=== PATIENT | male | born 1925 | race Caucasian/White ===

== ENCOUNTER 2016-06-02 17:18 | Emergency (ER) | payer MEDICARE, OTHER ==
[~2016-06-02 17:18] MED LIST: Lidocaine 1% 20 ML MDV ONE
[2016-06-02] MEDS ORDERED: cefTRIAXone\\ROCEPHIN 1 GM VIAL ONE (19:00)
--- NOTE | 2016-06-02 19:13 | ERRECORD ---
[facility] HPI COUGH (18:24 LLDO) CHIEF COMPLAINT: Patient presents for evaluation of cough, productive of clear sputum, Patient presents for evaluation of see triage note. finished 10 day course of cefdinir today but has not seen any benefit yet. still having low grade fever, mostly at night. cough still a problem, also mostly at night. HISTORIAN: History provided by patient, History provided by patient's family. LOCATION: Symptoms are generalized. QUALITY: Denies tightness, Symptoms described as wheezing, Pain is dull in nature, described as aching, has home neb and takes his own duoneb qid. TIME COURSE: Gradual onset of symptoms, There has been no change in the patient's symptoms over time, are constant. ASSOCIATED WITH: Associated symptoms reviewed, Associated with fever, Associated with nausea, Associated with upper respiratory infection, Associated with wheezing, Associated with weakness. EXACERBATED BY: Patient's condition exacerbated by deep breaths, Patient's condition exacerbated by exercise, Patient's condition exacerbated by lying flat. RELIEVED BY: Patient's condition relieved by rest, Patient's condition relieved by upright position. ROS CONSTITUTIONAL: Historian reports fatigue, reports fever, reports malaise, reports weakness. (18:28 LLDO) EYES: Negative eye review of systems, Historian denies eye pain, denies eye redness, denies eye discharge. (18:33 LLDO) ENT: Historian reports sore throat. (18:28 LLDO) CARDIOVASCULAR: Negative cardiovascular review of systems, Historian denies chest pain, no radiation, Historian denies diaphoresis, denies paroxysmal nocturnal dyspnea, denies syncope. (18:33 LLDO) RESPIRATORY: Historian reports cough, reports sputum. described as thick, clear, yellow, Historian reports wheezing. (18:28 LLDO) GI: Negative gastrointestinal review of systems, Historian denies abdominal pain, denies constipation, denies diarrhea, denies nausea, denies vomiting. (18:33 LLDO) MUSCULOSKELETAL: Historian reports myalgias. (18:28 LLDO) NEUROLOGIC: Historian denies confusion, denies dizziness, denies dysphasia, denies focal weakness, denies gait changes, reports headache, denies irritability, denies lethargy, denies mental status changes. (18:28 LLDO) HEMO/LYMPHATIC: Normal hematologic/lymphatic system review, Historian denies abnormal blood clotting, denies gum bleeding, denies petechiae. (18:33 LLDO) &a-1R&a+25V*p+0X*w7563V*c202B*c15G*c2P*p-0X&a-25V&a+1R Name: Eliceo Flood : 1925 M89 MedRec: [id number] AcctNum: [id number] Prepared: Bekah Jun 02, 2016 19:58 by Interface Page 1 of 5 pMD [facility] ALLERGIC/IMMUNOLOGIC: Normal allergy/immunologic system review, Historian denies eczema, denies environmental allergies, denies food allergies. (18:33 LLDO) PSYCHIATRIC: Negative psychiatric review of systems, Historian denies alcohol abuse, denies anxiety, denies depression, denies drug abuse, denies hallucinations. (18:33 LLDO) NOTES: All systems reviewed, negative except as described above. (18:28 LLDO) PAST MEDICAL HISTORY MEDICAL HISTORY: Flu vaccine up to date, Tetanus immunization up to date, Pneumococcal vaccine up to date, Past medical history includes cardiac history, arrhythmia, atrial fibrillation, Past medical history includes history of hypertension, which has been treated, Patient is compliant, Notes: ALATNA, Flu vaccine up to date,, Pneumococcal vaccine up to date, Past medical history includes cardiac history, Treated with a pacemaker, Past medical history includes pulmonary disease, chronic obstructive pulmonary disease. (17:47 CJEF) MALE SURGICAL HISTORY: Surgical history of orthopedic surgery, L2 TO S1 LAMINECTOMY, Date of surgery 04-06-15, Surgical history of appendectomy, Surgical history of cholecystectomy, Surgical history of hernia repair, CATARACTS-BILAT, Surgical history of tonsillectomy, Surgical history of appendectomy, Surgical history of hernia repair. (17:47 CJEF) PSYCHIATRIC HISTORY: Notes: DENIES, Notes: DENIES. (17:47 CJEF) SOCIAL HISTORY: Social History includes VERIFIED 04-08-15, Patient has no smoking history, Patient denies alcohol use, Patient denies drug use. (17:47 CJEF) FAMILY HISTORY: Family history is non-contributory to this case. (17:47 CJEF) NOTES: Nursing records reviewed, Agree with nursing records, Medication list reviewed. (18:33 LLDO) KNOWN ALLERGIES ALLERGIES: (Unconfirmed) flunisolide FOOD ALLERGIES: (Unconfirmed) Iodides Iodinated Contrast Media (Unconfirmed) Iodinated Contrast Media - IV Dye Iodine (Unconfirmed) LATEX ALLERGY? (Unconfirmed) MORPHINE (Unconfirmed) morphine (bulk) rosuvastatin calcium (Unconfirmed): Reaction: PT STATES GIVES HIM MENTAL Qjcjpst-Kvz-Wun Reductase Inhibitor (Unconfirmed): Reaction: GIVES HIM MENTAL PROBLEMS &a-1R&a+25V*p+0X*c7952D*c202B*c15G*c2P*p-0X&a-25V&a+1R Name: Eliceo Flood : 1925 M89 MedRec: [id number] AcctNum: [id number] Prepared: Bekah Jun 02, 2016 19:58 by Interface Page 2 of 5 [facility] Wdfuifd-Qgu-Ceo Reductase Inhibitors CURRENT MEDICATIONS aspirin: TABLET, CHEWABLE : Strength - 81 mg : ORAL Patient Dose: mg Oral once a day. (17:43 CJEF) albuterol: AEROSOL (GRAM) : Strength - 90 mcg : INHALATION Patient Dose: amp(s) Nebulize every 4 to 6 hours. (17:43 CJEF) amLODIPine: TABLET : Strength - 5 mg : ORAL Patient Dose: 0.5 mg Oral once a day. (17:43 CJEF) levothyroxine: TABLET : Strength - 100 mcg : ORAL Patient Dose: 100 mcg Oral once a day (in the morning). (17:44 CJEF) Bystolic: TABLET : Strength - 10 mg : ORAL Patient Dose: 10 mg Oral once a day (in the morning). (17:44 CJEF) RABEprazole: TABLET, DELAYED RELEASE (ENTERIC COATED) : Strength - 20 mg : ORAL Patient Dose: 20 mg Oral once a day. (17:44 CJEF) Zetia: TABLET : Strength - 10 mg : ORAL Patient Dose: 10 mg Oral once a day (at bedtime). (17:44 CJEF) losartan: TABLET : Strength - 25 mg : ORAL Patient Dose: 25 mg Oral once a day. (17:45 CJEF) Xalatan: DROPS : Strength - 0.005 % : OPHTHALMIC Patient Dose: 1 gtt Eyes Both once a day (at bedtime). (17:45 CJEF) Cosopt: DROPS : Strength - 2 %-0.5 % : OPHTHALMIC Patient Dose: 1 gtt Eyes Both 2 times a day. (17:45 CJEF) ipratropium bromide: SOLUTION, NON-ORAL : Strength - 0.2 mg/mL (0.02 %) : INHALATION Patient Dose: 1 amp(s) Nebulize every 4 to 6 hours. (17:45 CJEF) CoQ-10: CAPSULE : Strength - 100 mg : ORAL Patient Dose: 200 mg Oral once a day. (17:46 CJEF) VITAL SIGNS VITAL SIGNS: BP: 143/74, Pulse: 82, Resp: 18, Temp: 98.2 (Tympanic), Pain: 0, O2 sat: 95 on Room Air, Time: 06/02/2016 17:39. (17:39 CJEF) &a-1R&a+25V*p+0X*k1788S*c202B*c15G*c2P*p-0X&a-25V&a+1R Name: Eliceo Flood : 1925 M89 MedRec: [id number] AcctNum: [id number] Prepared: Bekah Jun 02, 2016 19:58 by Interface Page 3 of 5 [facility] BP: 141/67, Pulse: 62, Resp: 18, O2 sat: 97 on Room Air, Time: 06/02/2016 18:21. (18:21 CJEF) BP: 167/83, Pulse: 69, Resp: 18, Temp: 98.3 (Oral), Pain: 0, O2 sat: 97 on Room Air, Time: 06/02/2016 19:42. (19:42 CJEF) PHYSICAL EXAM CONSTITUTIONAL: Vital Signs Reviewed, Patient afebrile, Pulse normal, Blood pressure normal, Respiratory rate normal, Normal pulse oximetry, Patient appears, uncomfortable, Patient appears, in mild pain distress, Patient alert and oriented to person, place and time, Nursing notes reviewed. (18:30 LLDO) HEAD: Head exam normal, Head exam included findings of head atraumatic, normocephalic. (18:33 LLDO) EYES: Eye exam normal, Eye exam included findings of eyelids normal to inspection, Pupils equally round and reactive to light, Extraocular muscles intact. (18:33 LLDO) ENT: Ear exam normal, Nose exam normal, Pharynx, injected bilaterally, with swelling bilaterally, symmetrical, Uvula exam normal, Tonsils, enlarged bilaterally, Sinus exam included findings of frontal sinuses normal, maxillary sinuses normal. (18:30 LLDO) NECK: Neck exam included findings of normal range of motion, Trachea midline, Thyroid normal, no meningeal signs, Cervical adenopathy, diffuse. (18:30 LLDO) RESPIRATORY CHEST: Respiratory exam included findings of no respiratory distress, Wheezing present, Rales present, Chest exam included findings of chest movement symmetrical, Chest expansion equal, no tenderness, RALES AND WHEEZES MILD AND SCATTERED. (18:30 LLDO) CARDIOVASCULAR: Cardiovascular exam included findings of heart rate regular rate and rhythm, Heart sounds normal, Point of maximal impulse normal. (18:30 LLDO) ABDOMEN MALE: Abdominal exam normal, Abdominal exam included findings of abdomen nontender, Bowel sounds normal, no peritoneal signs. (18:33 LLDO) BACK: Back exam normal, Back exam included findings of normal inspection, range of motion normal. (18:33 LLDO) UPPER EXTREMITY: Upper extremity exam normal, Upper extremity exam included findings of inspection normal, Range of motion normal. (18:33 LLDO) LOWER EXTREMITY: Lower extremity exam normal, Lower extremity exam included findings of inspection normal, Range of motion normal. (18:33 LLDO) NEURO: Neuro exam normal, Neuro exam findings include patient oriented to person, place and time, Speech normal, Miladis coma scale 15. (18:33 LLDO) SKIN: Skin exam normal, Skin exam included findings of skin warm, dry, and normal in color, no rash. (18:33 LLDO) PSYCHIATRIC: Psychiatric exam normal, Psychiatric exam included &a-1R&a+25V*p+0X*h8229S*c202B*c15G*c2P*p-0X&a-25V&a+1R Name: Eliceo Flood Ruben : 1925 M89 MedRec: [id number] AcctNum: [id number] Prepared: Bekah Jun 02, 2016 19:58 by Interface Page 4 of 5 [facility]MD [facility] findings of patient oriented to person place and time, Normal affect, Judgment normal. (18:33 LLDO) MEDICATION ADMINISTRATION SUMMARY Drug Name: Rocephin intravenous, Dose Ordered: 1 g, Route: Intramuscular, Status: Given, Time: 19:32 06/02/2016, Drug Name: Levaquin oral, Dose Ordered: 500 mg, Route: Oral, Status: Given, Time: 19:31 06/02/2016, Detailed record available in Medication Service section. PROBLEM LIST No recorded problems DIAGNOSIS (18:57 LLDO) FINAL: PRIMARY: Pneumonia. PRESCRIPTION Levaquin oral: TABLET : 500 mg : ORAL : Quantity: 1 Unit: tab(s) Route: ORAL Schedule: once a day Dispense: 10 May substitute. Refills: No Refills . (18:58 LLDO) NOTES: No Refills. (18:58 LLDO) [place] + Oxygen Concentrator: EACH : : MISCELLANEOUS : Quantity: 1 Unit: units Route: MISCELLANEOUS Schedule: once a day (at bedtime) Dispense: 1 Unit: units May substitute. Refills: No Refills . (19:02 LLDO) NOTES: No Refills. (19:02 LLDO) DISPOSITION PATIENT: Disposition Type: Discharge, Disposition: *Discharge Home. (18:57 LLDO) Patient left the department. (19:52 [facility]) Jaquez: CJEF=ISIDRO Paige, Ana LLDO=MD Concepción, Mansoor &a-1R&a+25V*p+0X*c2505F*c202B*c15G*c2P*p-0X&a-25V&a+1R Name: Eliceo Flood Ruben : 1925 M89 MedRec: [id number] AcctNum: [id number] Prepared: Bekah Jun 02, 2016 19:58 by Interface Page 5 of 5 pMD [facility]TDD
--- NOTE | 2016-06-02 19:20 | PICIS ---
[facility] EMERGENCY RECORD TRIAGE (FriJun 02, 2016 17:42 CJEF) TRIAGE NOTES: PT REPORTS THAT HE HAS COPD AND ACUTE BRONCHITIS. PT REPORTS THAT HE HAS ALSO RECENTLY BEEN ON ANTIBOITICS FOR "HEAD COLD" AND FINSHISHED HIS ANTIBIOTICS TODAY. PT REPORTS SEVERAL NIGHTS OF FEVER AND TODAY IT WAS 100.2. PT TOOK TYLENOL. PT REPORTS COUGH AND CONGESTION. PT REPORTS PRODUCTIVE COUGH OF CLEAR AND THICK. ([place] Jun 02, 2016 17:42 CJEF) PATIENT: NAME: Eliceo Flood, AGE: 89, GENDER: male, : [id number], TIME OF GREET: FriJun 02, 2016 17:18, PREFERRED LANGUAGE: Spanish, ETHNICITY: Not or , ECODE BILLING MAP: [facility], SSN: [id number], Zip Code: [address], KG WEIGHT: 68.95, PHONE: , , , PERSON ID: [id number], PCP: MD Delgado Grover. ([place] Jun 02, 2016 17:42 CJEF) COMPLAINT: COPD,COUGH. ([place] Jun 02, 2016 17:42 CJEF) ADMISSION: URGENCY: 4 Non Urgent, ADMISSION SOURCE: Doctor's Office, TRANSPORT: Walk-in, BED: TRIAGE. ([place] Jun 02, 2016 17:42 CJEF) ASSESSMENT: Assessment: COUGH, FEVER, CONGESTION. (17:47 CJEF) PAIN: No complaint of pain. (17:47 CJEF) IMMUNIZATIONS: Flu vaccine up to date, Tetanus immunization up to date, Pneumococcal vaccine up to date. (17:47 CJEF) SIRS SCORING: Heart Rate 55-109 (0), Temp range 96.8-101.1 (0), respiratory rate 12-24 (0), Mental Status altered: no (0), Infection or Suspected Infection: No. (17:47 CJEF) TRIAGE SCREENING: Patient denies suicidal ideation, Patient denies presence of domestic violence. (17:47 CJEF) PROVIDERS: TRIAGE NURSE: Ana Paige RN. ([place] Jun 02, 2016 17:42 CJEF) VITAL SIGNS: BP 143/74, Pulse 82, Resp 18, Temp 98.2, (Tympanic), Pain 0, O2 Sat 95, on Room Air, Time 06/02/2016 17:39. (17:39 CJEF) PREVIOUS VISIT ALLERGIES: flunisolide, Iodides, Iodinated Contrast Media - IV Dye, morphine (bulk), Bvgvrns-Svt-Fnq Reductase Inhibitors. ([place] Jun 02, 2016 17:42 CJEF) flunisolide, Iodides, Iodinated Contrast Media - IV Dye, morphine (bulk), Vkpjvkv-Xdg-Nrv Reductase Inhibitors. (17:47 CJEF) KNOWN ALLERGIES ALLERGIES: (Unconfirmed) flunisolide FOOD ALLERGIES: (Unconfirmed) Iodides Iodinated Contrast Media (Unconfirmed) Iodinated Contrast Media - IV Dye Iodine (Unconfirmed) LATEX ALLERGY? (Unconfirmed) MORPHINE (Unconfirmed) morphine (bulk) rosuvastatin calcium (Unconfirmed): Reaction: PT STATES GIVES HIM MENTAL &a-1R&a+25V*p+0X*d7596O*c202B*c15G*c2P*p-0X&a-25V&a+1R Name: Eliceo Flood : 1925 M89 MedRec: [id number] AcctNum: [id number] Prepared: [place] Jun 02, 2016 20:05 by Interface Page 1 of 11 pMD [facility] EMERGENCY RECORD Hedqimn-Thx-Vzk Reductase Inhibitor (Unconfirmed): Reaction: GIVES HIM MENTAL PROBLEMS Jwcfpcx-Cwy-Zuf Reductase Inhibitors CURRENT MEDICATIONS aspirin: TABLET, CHEWABLE : Strength - 81 mg : ORAL Patient Dose: mg Oral once a day. (17:43 CJEF) albuterol: AEROSOL (GRAM) : Strength - 90 mcg : INHALATION Patient Dose: amp(s) Nebulize every 4 to 6 hours. (17:43 CJEF) amLODIPine: TABLET : Strength - 5 mg : ORAL Patient Dose: 0.5 mg Oral once a day. (17:43 CJEF) levothyroxine: TABLET : Strength - 100 mcg : ORAL Patient Dose: 100 mcg Oral once a day (in the morning). (17:44 CJEF) Bystolic: TABLET : Strength - 10 mg : ORAL Patient Dose: 10 mg Oral once a day (in the morning). (17:44 CJEF) RABEprazole: TABLET, DELAYED RELEASE (ENTERIC COATED) : Strength - 20 mg : ORAL Patient Dose: 20 mg Oral once a day. (17:44 CJEF) Zetia: TABLET : Strength - 10 mg : ORAL Patient Dose: 10 mg Oral once a day (at bedtime). (17:44 CJEF) losartan: TABLET : Strength - 25 mg : ORAL Patient Dose: 25 mg Oral once a day. (17:45 CJEF) Xalatan: DROPS : Strength - 0.005 % : OPHTHALMIC Patient Dose: 1 gtt Eyes Both once a day (at bedtime). (17:45 CJEF) Cosopt: DROPS : Strength - 2 %-0.5 % : OPHTHALMIC Patient Dose: 1 gtt Eyes Both 2 times a day. (17:45 CJEF) ipratropium bromide: SOLUTION, NON-ORAL : Strength - 0.2 mg/mL (0.02 %) : INHALATION Patient Dose: 1 amp(s) Nebulize every 4 to 6 hours. (17:45 CJEF) CoQ-10: CAPSULE : Strength - 100 mg : ORAL Patient Dose: 200 mg Oral once a day. (17:46 CJEF) VITAL SIGNS VITAL SIGNS: BP: 143/74, Pulse: 82, Resp: 18, Temp: 98.2 &a-1R&a+25V*p+0X*l2553O*c202B*c15G*c2P*p-0X&a-25V&a+1R Name: Eliceo Flood : 1925 M89 MedRec: [id number] AcctNum: [id number] Prepared: [place] Jun 02, 2016 20:05 by Interface Page 2 of 11 pMD [facility] EMERGENCY RECORD (Tympanic), Pain: 0, O2 sat: 95 on Room Air, Time: 06/02/2016 17:39. (17:39 CJEF) BP: 141/67, Pulse: 62, Resp: 18, O2 sat: 97 on Room Air, Time: 06/02/2016 18:21. (18:21 CJEF) BP: 167/83, Pulse: 69, Resp: 18, Temp: 98.3 (Oral), Pain: 0, O2 sat: 97 on Room Air, Time: 06/02/2016 19:42. (19:42 CJEF) NURSING ASSESSMENT: ENT (17:48 CJEF) CONSTITUTIONAL: Complex assessment performed, Patient arrives ambulatory, Gait steady, History obtained from patient, Patient appears comfortable, Patient cooperative, Patient alert, Oriented to person, place and time, Skin warm, Skin dry, Skin normal in color, Mucous membranes pink, Mucous membranes moist, Patient is well-groomed, PT REPORTS THAT HE HAS COPD AND ACUTE BRONCHITIS. PT REPORTS THAT HE HAS ALSO RECENTLY BEEN ON ANTIBOITICS FOR "HEAD COLD" AND FINSHISHED HIS ANTIBIOTICS TODAY. PT REPORTS SEVERAL NIGHTS OF FEVER AND TODAY IT WAS 100.2. PT TOOK TYLENOL. PT REPORTS COUGH AND CONGESTION. PT REPORTS PRODUCTIVE COUGH OF CLEAR AND THICK. PAIN: Patient rates pain as 0 out of 10. ENT: Ear assessment findings include ear normal to inspection, Nasal assessment findings include nose normal to inspection, Discharge, thin, from bilateral nare, Congestion, bilaterally, Mouth and throat assessment findings include mouth inspection normal. RESPIRATORY/CHEST: Breath sounds clear, Respiratory assessment findings include respiratory effort easy, Respirations regular, Conversing normally, Neck and chest exam findings include trachea midline, Chest expansion equal, Chest movement symmetrical, no signs of distress, Associated with cough, productive of, clear sputum, Associated with fever, Maximum temperature 100.2, oral. NOTES: Patient tolerated procedure well. SAFETY: Side rails up, Cart/Stretcher in lowest position, Family at bedside, Call light within reach, Hospital ID band on. NURSING ASSESSMENT: FALL RISK (18:38 [facility]) FALL RISK: Fall risk assessment findings include: no history of falls (0), No bed rest greater than 2 days (0), No use of level of consciousness altering agents with mentation or cognitive changes (0), No change in blood pressure (0), Sensory deficits (1), Impaired mobility (3), No neurologic diagnosis (0), No elimination problems (0), No confusion (0), Total score 4, No risk for fall. HENDRICH II FALL RISK: Hendrich II Fall Risk assessment findings include patient not confused, disoriented or impulsive, not symptomatic or depressed, no altered elimination, no dizziness or vertigo, male(1), no antiepileptics (anticonvulsants) administered, no Benzodiazepines administered, Pushes up, successful in one attempt(1), Total score 2, Score less than 5. Patient not high risk for falls. &a-1R&a+25V*p+0X*c1818Z*c202B*c15G*c2P*p-0X&a-25V&a+1R Name: Eliceo Flood : 1925 M89 MedRec: [id number] AcctNum: [id number] Prepared: [place] Jun 02, 2016 20:05 by Interface Page 3 of 11 pMD [facility] EMERGENCY RECORD NURSING ASSESSMENT: SKIN (18:38 CJEF) SKIN: Skin assessment findings include skin warm, Skin dry, Skin normal in color. EMERY SCALE: (4) Sensory perception has no impairment, (4) Skin is rarely moist, (3) Patient walks occasionally, (3) Slightly limited mobility, (3) Adequate nutrition, (3) Patient has no apparent problem moving, Emery Risk Total: 20. NOTES: Patient tolerated procedure well. SAFETY: Side rails up, Cart/Stretcher in lowest position, Family at bedside, Call light within reach, Hospital ID band on. NURSING PROCEDURE: BOBBIN TRUCKER (18:21 CJ) PATIENT IDENTIFIER: Patient actively involved in identification process, Patient's identity verified by patient stating name, Patient's identity verified by patient stating date. BOBBIN TRUCKER: Cardiac monitoring indicated for SOB, Patient placed on non-invasive blood pressure monitor, Patient placed on continuous pulse oximetry, Adult/pediatric oxisensor applied. FOLLOW-UP: After procedure, alarms set and on, After procedure, patient tolerating monitoring. NOTES: Patient tolerated procedure well. SAFETY: Side rails up, Cart/Stretcher in lowest position, Family at bedside, Call light within reach, Hospital ID band on. NURSING PROCEDURE: DISCHARGE NOTE (19:51 CJ) DISCHARGE: Patient discharged to home, ambulating without assistance, family driving, accompanied by //partner, Summary of Care printed/ provided, Patient requested and was provided an electronic copy of Discharge Instructions, Transition record given to patient, Discharge instructions given to patient, Simple or moderate discharge teaching performed, Prescriptions given and instructions on side effects given, Medication reconciliation form given, Above person(s) verbalized understanding of discharge instructions and follow-up care, Patient treated and evaluated by physician. BELONGINGS: Belongings remain with patient. NOTES: Patient tolerated procedure well. SAFETY: Side rails up, Cart/Stretcher in lowest position, Family at bedside, Call light within reach, Hospital ID band on. NURSING PROCEDURE: NURSE NOTES NURSES NOTES: Patient in no apparent distress, Patient resting quietly, Notes: PT RESTING IN BED QUIETLY WITH FAMILY AT BEDSIDE. NO DISTRESS NOTED. (18:21 CJEF) Patient in no apparent distress, Patient resting quietly, Notes: PT RESTING IN BED QUIETLY WITH FAMILY AT BEDSIDE. NO DISTRESS NOTED. (19:44 CJEF) &a-1R&a+25V*p+0X*l0447D*c202B*c15G*c2P*p-0X&a-25V&a+1R Name: Eliceo Flood : 1925 M89 MedRec: [id number] AcctNum: [id number] Prepared: [place] Jun 02, 2016 20:05 by Interface Page 4 of 11 D [facility] EMERGENCY RECORD NURSING PROCEDURE: TRANSPORT TO TESTS PATIENT IDENTIFIER: Patient actively involved in identification process, Patient's identity verified by patient stating name, Patient's identity verified by patient stating date. (18:30 CJEF) TRANSPORT TO TESTS: Transport indicated to facilitate diagnosis, Patient transported to x-ray, via wheelchair, Accompanied by x-ray museum technician. (18:30 CJEF) FOLLOW-UP: After procedure, patient returned to emergency department. (18:37 CJEF) NOTES: Patient tolerated procedure well. (18:30 CJEF) SAFETY: Side rails up, Cart/Stretcher in lowest position, Family at bedside, Call light within reach, Hospital ID band on. (18:30 CJEF) ORDER DETAILS Order Name: CBC with Differential, Status: Active, Time: 18:52 06/02/2016, User: XANDER, - Ordered for: MD Beebe Lloyd, - Entered by: MD Beebe Lloyd - [place] Jun 02, 2016 18:52, - Quantity: 1, Order Name: Comprehensive Metabolic Panel, Status: Active, Time: 18:52 06/02/2016, User: XANDER, - Ordered for: MD Beebe Lloyd, - Entered by: MD Beebe Lloyd - [place] Jun 02, 2016 18:52, - Quantity: 1, Order Name: Culture, Blood, Status: Active, Time: 18:52 06/02/2016, User: XANDER, - Ordered for: MD Beebe Lloyd, - Entered by: MD Beebe Lloyd - [place] Jun 02, 2016 18:52, - Quantity: 1, Order Name: XR Chest Pa & Lat STANDARD, Status: Active, Time: 18:23 06/02/2016, User: XANDER, - Ordered for: MD Beebe Lloyd, - Entered by: MD Beebe Lloyd - [place] Jun 02, 2016 18:23, - Quantity: 1. MEDICATION ADMINISTRATION SUMMARY Drug Name: Rocephin intravenous, Dose Ordered: 1 g, Route: Intramuscular, Status: Given, Time: 19:32 06/02/2016, Drug Name: Levaquin oral, Dose Ordered: 500 mg, Route: Oral, Status: Given, Time: 19:31 06/02/2016, Detailed record available in Medication Service section. MEDICATION SERVICE Levaquin oral: Order: Levaquin oral (levofloxacin) - Dose: 500 mg : Oral Schedule: Now &a-1R&a+25V*p+0X*d7038S*c202B*c15G*c2P*p-0X&a-25V&a+1R Name: Eliceo Flood : 1925 M89 MedRec: [id number] AcctNum: [id number] Prepared: [place] Jun 02, 2016 20:05 by Interface Page 5 of 11 pMD [facility] EMERGENCY RECORD Ordered by: Mnasoor Beebe MD Entered by: MD Bekah Yoo Jun 02, 2016 18:56 Documented as given by: ISIDRO Lozada Jun 02, 2016 19:31 Patient, Medication, Dose, Route and Time verified prior to administration. Amount given: 500MG, Site: Medication administered P.O., Mouth check performed after administration of medication, Patient appears Awake and alert- acceptable, Correct patient, time, route, dose and medication confirmed prior to administration, Patient advised of actions and side-effects prior to administration, Allergies confirmed and medications reviewed prior to administration, Patient tolerated procedure well, Patient in position of comfort, Side rails up, Cart in lowest position, Family at bedside. : Follow Up : Response assessment performed, No signs or symptoms of allergic reaction noted, Advised not to ambulate without assistance, Patient in position of comfort, Side rails up, Cart in lowest position, Family at bedside. (19:48 [facility]) Rocephin intravenous: Order: Rocephin intravenous (ceftriaxone sodium) - Dose: 1 g : Intramuscular Schedule: Now Ordered by: Mansoor Beebe MD Entered by: MD Bekah Yoo Jun 02, 2016 18:55 Documented as given by: ISIDRO Lozada Jun 02, 2016 19:32 Patient, Medication, Dose, Route and Time verified prior to administration. IM antibiotic, Medication administered to right buttock, Patient appears Awake and alert- acceptable, Correct patient, time, route, dose and medication confirmed prior to administration, Patient advised of actions and side-effects prior to administration, Allergies confirmed and medications reviewed prior to administration, Patient tolerated procedure well, Patient in position of comfort, Side rails up, Cart in lowest position, Family at bedside. : Follow Up : Response assessment performed, No signs or symptoms of allergic reaction noted, Advised not to ambulate without assistance, Patient in position of comfort, Side rails up, Cart in lowest position, Family at bedside. (19:48 [facility]) HPI COUGH (18:24 LLDO) CHIEF COMPLAINT: Patient presents for evaluation of cough, productive of clear sputum, Patient presents for evaluation of see triage note. finished 10 day course of cefdinir today but has not seen any benefit yet. still having low grade fever, mostly at night. cough still a problem, also mostly at night. HISTORIAN: History provided by patient, History provided by patient's family. LOCATION: Symptoms are generalized. QUALITY: Denies tightness, Symptoms described as wheezing, Pain is dull in nature, described as aching, has home neb and takes his own duoneb qid. TIME COURSE: Gradual onset of symptoms, There has been no change in the patient's &a-1R&a+25V*p+0X*g8486S*c202B*c15G*c2P*p-0X&a-25V&a+1R Name: Eliceo Flood : 1925 M89 MedRec: [id number] AcctNum: [id number] Prepared: [place] Jun 02, 2016 20:05 by Interface Page 6 of 11 pMD [facility] EMERGENCY RECORD symptoms over time, are constant. ASSOCIATED WITH: Associated symptoms reviewed, Associated with fever, Associated with nausea, Associated with upper respiratory infection, Associated with wheezing, Associated with weakness. EXACERBATED BY: Patient's condition exacerbated by deep breaths, Patient's condition exacerbated by exercise, Patient's condition exacerbated by lying flat. RELIEVED BY: Patient's condition relieved by rest, Patient's condition relieved by upright position. ROS CONSTITUTIONAL: Historian reports fatigue, reports fever, reports malaise, reports weakness. (18:28 LLDO) EYES: Negative eye review of systems, Historian denies eye pain, denies eye redness, denies eye discharge. (18:33 LLDO) ENT: Historian reports sore throat. (18:28 LLDO) CARDIOVASCULAR: Negative cardiovascular review of systems, Historian denies chest pain, no radiation, Historian denies diaphoresis, denies paroxysmal nocturnal dyspnea, denies syncope. (18:33 LLDO) RESPIRATORY: Historian reports cough, reports sputum. described as thick, clear, yellow, Historian reports wheezing. (18:28 LLDO) GI: Negative gastrointestinal review of systems, Historian denies abdominal pain, denies constipation, denies diarrhea, denies nausea, denies vomiting. (18:33 LLDO) MUSCULOSKELETAL: Historian reports myalgias. (18:28 LLDO) NEUROLOGIC: Historian denies confusion, denies dizziness, denies dysphasia, denies focal weakness, denies gait changes, reports headache, denies irritability, denies lethargy, denies mental status changes. (18:28 LLDO) HEMO/LYMPHATIC: Normal hematologic/lymphatic system review, Historian denies abnormal blood clotting, denies gum bleeding, denies petechiae. (18:33 LLDO) ALLERGIC/IMMUNOLOGIC: Normal allergy/immunologic system review, Historian denies eczema, denies environmental allergies, denies food allergies. (18:33 LLDO) PSYCHIATRIC: Negative psychiatric review of systems, Historian denies alcohol abuse, denies anxiety, denies depression, denies drug abuse, denies hallucinations. (18:33 LLDO) NOTES: All systems reviewed, negative except as described above. (18:28 LLDO) PAST MEDICAL HISTORY MEDICAL HISTORY: Flu vaccine up to date, Tetanus immunization up to date, Pneumococcal vaccine up to date, Past medical history includes cardiac history, arrhythmia, atrial &a-1R&a+25V*p+0X*w0161H*c202B*c15G*c2P*p-0X&a-25V&a+1R Name: Eliceo Flood : 1925 M89 MedRec: [id number] AcctNum: [id number] Prepared: [place] Jun 02, 2016 20:05 by Interface Page 7 of 11 pMD [facility] EMERGENCY RECORD fibrillation, Past medical history includes history of hypertension, which has been treated, Patient is compliant, Notes: OSAGE, Flu vaccine up to date,, Pneumococcal vaccine up to date, Past medical history includes cardiac history, Treated with a pacemaker, Past medical history includes pulmonary disease, chronic obstructive pulmonary disease. (17:47 CJEF) MALE SURGICAL HISTORY: Surgical history of orthopedic surgery, L2 TO S1 LAMINECTOMY, Date of surgery 04-06-15, Surgical history of appendectomy, Surgical history of cholecystectomy, Surgical history of hernia repair, CATARACTS-BILAT, Surgical history of tonsillectomy, Surgical history of appendectomy, Surgical history of hernia repair. (17:47 CJEF) PSYCHIATRIC HISTORY: Notes: DENIES, Notes: DENIES. (17:47 CJEF) SOCIAL HISTORY: Social History includes VERIFIED 04-08-15, Patient has no smoking history, Patient denies alcohol use, Patient denies drug use. (17:47 CJEF) FAMILY HISTORY: Family history is non-contributory to this case. (17:47 CJEF) NOTES: Nursing records reviewed, Agree with nursing records, Medication list reviewed. (18:33 LLDO) PHYSICAL EXAM CONSTITUTIONAL: Vital Signs Reviewed, Patient afebrile, Pulse normal, Blood pressure normal, Respiratory rate normal, Normal pulse oximetry, Patient appears, uncomfortable, Patient appears, in mild pain distress, Patient alert and oriented to person, place and time, Nursing notes reviewed. (18:30 LLDO) HEAD: Head exam normal, Head exam included findings of head atraumatic, normocephalic. (18:33 LLDO) EYES: Eye exam normal, Eye exam included findings of eyelids normal to inspection, Pupils equally round and reactive to light, Extraocular muscles intact. (18:33 LLDO) ENT: Ear exam normal, Nose exam normal, Pharynx, injected bilaterally, with swelling bilaterally, symmetrical, Uvula exam normal, Tonsils, enlarged bilaterally, Sinus exam included findings of frontal sinuses normal, maxillary sinuses normal. (18:30 LLDO) NECK: Neck exam included findings of normal range of motion, Trachea midline, Thyroid normal, no meningeal signs, Cervical adenopathy, diffuse. (18:30 LLDO) RESPIRATORY CHEST: Respiratory exam included findings of no respiratory distress, Wheezing present, Rales present, Chest exam included findings of chest movement symmetrical, Chest expansion equal, no tenderness, RALES AND WHEEZES MILD AND SCATTERED. (18:30 LLDO) CARDIOVASCULAR: Cardiovascular exam included findings of heart rate regular rate and rhythm, Heart sounds normal, Point of maximal impulse normal. (18:30 LLDO) &a-1R&a+25V*p+0X*i9022I*c202B*c15G*c2P*p-0X&a-25V&a+1R Name: Eliceo Flood : 1925 M89 MedRec: [id number] AcctNum: [id number] Prepared: Bekah Jun 02, 2016 20:05 by Interface Page 8 of 11 pMD [facility] EMERGENCY RECORD ABDOMEN MALE: Abdominal exam normal, Abdominal exam included findings of abdomen nontender, Bowel sounds normal, no peritoneal signs. (18:33 LLDO) BACK: Back exam normal, Back exam included findings of normal inspection, range of motion normal. (18:33 LLDO) UPPER EXTREMITY: Upper extremity exam normal, Upper extremity exam included findings of inspection normal, Range of motion normal. (18:33 LLDO) LOWER EXTREMITY: Lower extremity exam normal, Lower extremity exam included findings of inspection normal, Range of motion normal. (18:33 LLDO) NEURO: Neuro exam normal, Neuro exam findings include patient oriented to person, place and time, Speech normal, [place] coma scale 15. (18:33 LLDO) SKIN: Skin exam normal, Skin exam included findings of skin warm, dry, and normal in color, no rash. (18:33 LLDO) PSYCHIATRIC: Psychiatric exam normal, Psychiatric exam included findings of patient oriented to person place and time, Normal affect, Judgment normal. (18:33 LLDO) EVENTS TRANSFER: Triage to Emergency Triage. ([place] Jun 02, 2016 17:42 CJEF) Emergency Triage to Main ED -05. (17:47 CJEF) Removed from Emergency Main ED -05. (19:52 CJEF) PROBLEM LIST No recorded problems DIAGNOSIS (18:57 LLDO) FINAL: PRIMARY: Pneumonia. DISPOSITION PATIENT: Disposition Type: Discharge, Disposition: *Discharge Home. (18:57 LLDO) Patient left the department. (19:52 CJEF) INSTRUCTION (19:03 LLDO) DISCHARGE: PNEUMONIA (ADULT). FO[facility]UP: [facility] [address] [place] [address], , Follow up with Primary Care Physician in 7-10 days. SPECIAL: Follow-up with your PCP. PRESCRIPTION Levaquin oral: TABLET : 500 mg : ORAL : Quantity: 1 Unit: tab(s) Route: ORAL Schedule: once a day Dispense: 10 May substitute. Refills: No Refills . (18:58 LLDO) NOTES: No Refills. (18:58 LLDO) [place] + Oxygen Concentrator: EACH : : MISCELLANEOUS : &a-1R&a+25V*p+0X*a5492C*c202B*c15G*c2P*p-0X&a-25V&a+1R Name: Eliceo Flood : 1925 M89 MedRec: [id number] AcctNum: [id number] Prepared: Bekah Jun 02, 2016 20:05 by Interface Page 9 of 11 pMD [facility] EMERGENCY RECORD Quantity: 1 Unit: units Route: MISCELLANEOUS Schedule: once a day (at bedtime) Dispense: 1 Unit: units May substitute. Refills: No Refills . (19:02 LLDO) NOTES: No Refills. (19:02 LLDO) IMAGING (19:52 CJ) *DISCHARGE INSTRUCTIONS RECEIPT: Image captured from scanner. Page 2 added. Image captured from scanner. *SUPPLY CHARGE SHEET: Image captured from scanner. ADMIN (19:03 LLDO) DIGITAL SIGNATURE: MD Beebe Lloyd. MD Beebe Lloyd. RESULTS (19:52 [facility]) LABORATORY: Comprehensive Metabolic Panel Collection DT: Bekah Jun 02, 2016 19:28, *Sodium 135 - L mmol/L, Range (136-145), Potassium 3.9 mmol/L, Range (3.5-5.1), Chloride 103 mmol/L, Range (98-107), *Carbon Dioxide 20 - L mmol/L, Range (23-31), Anion Gap 16 mmol/L, Range (10-20), BUN (Urea Nitrogen) 17 mg/dL, Range (8.4-25.7), Creatinine 1.03 mg/dL, Range (0.7-1.3), Estimated GFR-MDRD 68 , Reference Range for Estimated GFR: Greater than 90, mL/min/1.73 m2 NOTE: The MDRD equation has not been validated for use, with the elderly (over 70 years of age), women, patients with, serious comorbid condition or persons with extremes of body size, muscle, mass, or nutritional status. , *Glucose 127 - H mg/dL, Range (83-110), Calcium 8.9 mg/dL, Range (7.8-10.44), Bilirubin, Total 0.4 mg/dL, Range (0.2-1.2), Protein, Total 7.0 g/dL, Range (5.8-8.1), NOTE: Plasma values are generally 0.3 to 0.5 g/dL higher than serum values, due to the presence of fibrinogen. , Albumin 3.8 g/dL, Range (3.4-4.8), Globulin 3.2 g/dL, Range (2.4-3.5), Alb/Glob Ratio 1.2 g/dL, Range (1.2-2.2), Alkaline Phosphatase 90 U/L, Range (40-150), AST (SGOT) 17 U/L, Range (5-34), ALT (SGPT) 15 U/L, Range (0-55). CBC with Differential Collection DT: Bekah Jun 02, 2016 19:28, White Blood Cell (WBC) Count 9.6 thou/uL, Range (4.8-10.8), *Red Blood Cell (RBC) Count 4.17 - L mill/uL, Range (4.70-6.10), *Hemoglobin 13.4 - L g/dL, Range (14.0-18.0), *Hematocrit 39.7 - L %, Range (42.0-52.0), &a-1R&a+25V*p+0X*[id number]*c202B*c15G*c2P*p-0X&a-25V&a+1R Name: Eliceo Flood : 1925 M89 MedRec: [id number] AcctNum: [id number] Prepared: Bekah Jun 02, 2016 20:05 by Interface Page 10 of 11 pMD [facility] EMERGENCY RECORD *Mean Corpuscular Volume 95.2 - H fl, Range (80.0-94.0), *Mean Corpuscular Hemoglobin 32.1 - H pg, Range (27.0-31.0), Mean Corpuscular HGB CONC 33.7 g/dL, Range (32.0-36.0), RBC Distribution Width 11.8 %, Range (11.5-14.5), Platelet Count 212 thou/uL, Range (130-400), Mean Platelet Volume 7.6 fL, Range (7.4-10.4), %Neutrophils 66.5 %, Range (42.0-75.0), *%Lymphocytes 19.3 - L %, Range (21.0-51.0), *%Monocytes 10.7 - H %, Range (0.0-10.0), %Eosinophils 2.6 %, Range (0.0-10.0), %Basophils 1.0 %, Range (0.0-1.0), #Neutrophils 6.4 thou/uL, Range (1.40-6.50), #Lymphocytes 1.9 thou/uL, Range (1.20-3.40), *#Monocytes 1.0 - H thou/uL, Range (0.11-0.59), #Eosinphils 0.3 thou/uL, Range (0.0-0.7), #Basophils 0.1 thou/uL, Range (0.0-0.2). Jaquez: MEGAN=ISIDRO Paige, Ana TERRELL=MD Concepción, Mansoor &a-1R&a+25V*p+0X*[id number]*c202B*c15G*c2P*p-0X&a-25V&a+1R Name: Eliceo Flood : 1925 M89 MedRec: [id number] AcctNum: [id number] Prepared: Bekah Jun 02, 2016 20:05 by Interface Page 11 of 11 pMD [facility] MEDICATION RECONCILIATION You were seen in the Emergency Department on: FriJun 02, 2016 KNOWN ALLERGIES ALLERGIES: (Unconfirmed) flunisolide FOOD ALLERGIES: (Unconfirmed) Iodides Iodinated Contrast Media (Unconfirmed) Iodinated Contrast Media - IV Dye Iodine (Unconfirmed) LATEX ALLERGY? (Unconfirmed) MORPHINE (Unconfirmed) morphine (bulk) rosuvastatin calcium (Unconfirmed): Reaction: PT STATES GIVES HIM MENTAL Srkjfpq-Cqe-Zzf Reductase Inhibitor (Unconfirmed): Reaction: GIVES HIM MENTAL PROBLEMS Cjjazuq-Und-Mdr Reductase Inhibitors MEDICATIONS GIVEN WHILE IN THE EMERGENCY DEPARTMENT Rocephin intravenous (ceftriaxone sodium) - Dose: 1 gram(s) : Intramuscular Levaquin oral (levofloxacin) - Dose: 500 milligram(s) : Oral HOME MEDICATIONS CONTINUE PRESCRIBED albuterol : AEROSOL (GRAM) : Strength - 90 mcg : INHALATION Continue as prescribed Patient had been taking: amp(s) Nebulize every 4 to 6 hours. amLODIPine : TABLET : Strength - 5 mg : ORAL Continue as prescribed Patient had been takin.5 mg Oral once a day. aspirin : TABLET, CHEWABLE : Strength - 81 mg : ORAL Continue as prescribed Patient had been taking: mg Oral once a day. Bystolic : TABLET : Strength - 10 mg : ORAL Continue as prescribed Patient had been takin mg Oral once a day (in the morning). &a-1R&a+25V*p+0X*[id number]*c202B*c15G*c2P*p-0X&a-25V&a+1R Name: Eliceo Flood : 1925 M89 MedRec: [id number] AcctNum: [id number] Prepared: Bekah Jun 02, 2016 20:05 by Interface D [facility] MEDICATION RECONCILIATION CoQ-10 : CAPSULE : Strength - 100 mg : ORAL Continue as prescribed Patient had been takin mg Oral once a day. Cosopt : DROPS : Strength - 2 %-0.5 % : OPHTHALMIC Continue as prescribed Patient had been takin gtt Eyes Both 2 times a day. ipratropium bromide : SOLUTION, NON-ORAL : Strength - 0.2 mg/mL (0.02 %) : INHALATION Continue as prescribed Patient had been takin amp(s) Nebulize every 4 to 6 hours. levothyroxine : TABLET : Strength - 100 mcg : ORAL Continue as prescribed Patient had been takin mcg Oral once a day (in the morning). losartan : TABLET : Strength - 25 mg : ORAL Continue as prescribed Patient had been takin mg Oral once a day. RABEprazole : TABLET, DELAYED RELEASE (ENTERIC COATED) : Strength - 20 mg : ORAL Continue as prescribed Patient had been takin mg Oral once a day. Xalatan : DROPS : Strength - 0.005 % : OPHTHALMIC Continue as prescribed Patient had been takin gtt Eyes Both once a day (at bedtime). Zetia : TABLET : Strength - 10 mg : ORAL Continue as prescribed Patient had been takin mg Oral once a day (at bedtime). Notes from the emergency department Reviewed with family Reviewed with patient Reviewed with family Reviewed with patient PRESCRIPTIONS (2) &a-1R&a+25V*p+0X*v0003M*c202B*c15G*c2P*p-0X&a-25V&a+1R Name: RemigioEliceo : 1925 M89 MedRec: [id number] AcctNum: [id number] Prepared: Bekah Jun 02, 2016 20:05 by Interface pMD [facility] MEDICATION RECONCILIATION Printed (2) Levaquin oral : TABLET : 500 mg : ORAL Quantity: 1, Unit: tab(s), Route: ORAL, Schedule: once a day, Dispense: 10 &a-1R&a+25V*p+0X*[id number]*c202B*c15G*c2P*p-0X&a-25V&a+1R Name: RemigioEliceo : 1925 M89 MedRec: [id number] AcctNum: [id number] Prepared: Bekah Jun 02, 2016 20:05 by Interface pMD [facility]
[2016-06-02 19:49] LABS: #Basophils 0.1 thou/uL (0.0-0.2); #Eosinphils 0.3 thou/uL (0.0-0.7); #Lymphocytes 1.9 thou/uL (1.20-3.40); #Neutrophils 6.4 thou/uL (1.40-6.50); %Eosinophils 2.6 % (0.0-10.0); %Lymphocytes 19.3 % (21.0-51.0); %Monocytes 10.7 % (0.0-10.0); %Neutrophils 66.5 % (42.0-75.0); ALT (SGPT) 15 U/L (0-55); AST (SGOT) 17 U/L (5-34); Albumin 3.8 g/dL (3.4-4.8); Alkaline Phosphatase 90 U/L (40-150); Anion Gap 16 mmol/L (10-20); BUN (Urea Nitrogen) 17 mg/dL (8.4-25.7); Bilirubin, Total 0.4 mg/dL (0.2-1.2); Calc. Creatinine Clearance 0 mL/min (70-130); Calcium 8.9 mg/dL (7.8-10.44); Carbon Dioxide 20 mmol/L (23-31); Chloride 103 mmol/L (98-107); Estimated GFR-MDRD 68; Globulin 3.2 g/dL (2.4-3.5); Glucose 127 mg/dL (83-110); Hemoglobin 13.4 g/dL (14.0-18.0); Mean Corpuscular HGB CONC 33.7 g/dL (32.0-36.0); Mean Corpuscular Hemoglobin 32.1 pg (27.0-31.0); Mean Corpuscular Volume 95.2 fl (80.0-94.0); Mean Platelet Volume 7.6 fL (7.4-10.4); Platelet Count 212 thou/uL (130-400); Potassium 3.9 mmol/L (3.5-5.1); RBC Distribution Width 11.8 % (11.5-14.5); Red Blood Cell (RBC) Count 4.17 mill/uL (4.70-6.10); Sodium 135 mmol/L (136-145); White Blood Cell (WBC) Count 9.6 thou/uL (4.8-10.8)
--- NOTE | 2016-06-02 20:35 | RAD ---
PA AND LATERAL CHEST: Date: 06-02-16 History: Cough. FINDINGS: Compared with 10-03-14. A dual-lead left subclavian cardiac pacemaking device remains in place. Cardiac silhouette and pulm onary vasculature are within normal limits. There are scattered calcified pleural based plaques again seen bilaterally, similar to the prior exa m. There is a new parenchymal opacity seen at the left lung base which is not definitely seen on t he lateral projection but is worrisome for a focal area of pneumonia. Cardiac silhouette and pulmon liz vasculature are within normal limits. There is linear radiopaque density overlying the medial right clavicle which may be related to overl savana artifact. This was not present on the prior exam. Vascular calcifications are seen in the tho racic aorta. No other interval change. IMPRESSION: 1. Parenchymal opacity at the left lung base worrisome for pneumonia. Follow up to resolution is r ecommended. 2. Stable calcified pleural based plaques which can be seen with prior asbestos exposure. 3. Linear radiopaque density overlying the medial right clavicle which may be related to overlying artifact as this was not present on the prior study, but clinical correlation is recommended. POS: [facility]
== END 2016-06-02 19:51 | disposition home or self-care (01) ==
LOC: MADERS 17:18
DX: J18.9 Pneumonia, unspecified organism (principal); I48.91 Unspecified atrial fibrillation; I10 Essential (primary) hypertension; J44.9 Chronic obstructive pulmonary disease, unspecified; Z79.82 Long term (current) use of aspirin; Z79.899 Other long term (current) drug therapy
CPT/HCPCS: 36415; 71020; 80053; 85025; 87040; 96372; J0696; J2001

== ENCOUNTER 2016-07-10 11:13 | Outpatient (CLI) | payer MEDICARE, OTHER ==
--- NOTE | 2016-07-10 12:52 | RAD ---
CHEST TWO VIEWS: History: Pneumonia. Comparison: 06-02-16 FINDINGS: Cardiac silhouette and pulmonary vasculature are unremarkable. Mediastinum is midline with aortic c alcification and dual lead left subclavian electronic device. Lungs remain hyperinflated with areas of prominent scarring throughout each lung, similar in appearance to the prior study. Calcified gr anulomata are consistent with healed granulomatous disease. There is no lobar consolidation or evid ence of pneumothorax. Focal opacity at the left lung base on the previous study is less pronounced than on the prior exam. IMPRESSION: 1. Interval resolution of the left basilar infiltrate. 2. COPD. 3. Atherosclerosis. POS: [facility]
== END 2016-07-10 11:14 | disposition home or self-care (01) ==
LOC: MADLABBHPM 11:13
PROVIDERS: ATTEND Family Medicine
DX: J18.9 Pneumonia, unspecified organism (principal)
CPT/HCPCS: 71020

== ENCOUNTER 2016-09-04 17:46 | Emergency (ER) | payer MEDICARE, OTHER | END 2016-09-04 18:28 | disposition home or self-care (01) | LOC: MADERS 17:46 | DX: H11.31 Conjunctival hemorrhage, right eye (principal); E03.9 Hypothyroidism, unspecified; I48.91 Unspecified atrial fibrillation; I10 Essential (primary) hypertension; Z87.891 Personal history of nicotine dependence; Z79.899 Other long term (current) drug therapy | CPT/HCPCS: 99282 ==

== ENCOUNTER 2016-10-08 07:32 | Outpatient (CLI) | payer MEDICARE, OTHER ==
[2016-10-08 08:27] LABS: ALT (SGPT) 15 U/L (8-55); AST (SGOT) 17 U/L (5-34); Albumin 3.8 g/dL (3.4-4.8); Alkaline Phosphatase 78 U/L (40-150); Anion Gap 8 mmol/L (10-20); BUN (Urea Nitrogen) 11 mg/dL (8.4-25.7); Bilirubin, Direct 0.3 mg/dL (0.1-0.3); Bilirubin, Total 0.7 mg/dL (0.2-1.2); Calc. Creatinine Clearance 0 mL/min (70-130); Calcium 8.7 mg/dL (7.8-10.44); Carbon Dioxide 28 mmol/L (23-31); Cardiac Risk 3.8 (Less than 4.5); Chloride 101 mmol/L (98-107); Cholesterol 169 mg/dl (< 200 Desired); Estimated GFR-MDRD 77; Glucose 103 mg/dL (83-110); HDL Cholesterol 45 mg/dL (>60 Neg Risk); LDL Cholesterol, Calculated 112 mg/dL; Potassium 4.2 mmol/L (3.5-5.1); Protein, Total 6.8 g/dL (5.8-8.1); Sodium 133 mmol/L (136-145); Triglycerides 58 mg/dL (Less than 150)
[2016-10-08 09:06] LABS: #Basophils 0.1 thou/uL (0.0-0.2); #Eosinphils 0.2 thou/uL (0.0-0.7); #Lymphocytes 2.4 thou/uL (1.20-3.40); #Monocytes 0.8 thou/uL (0.11-0.59); #Neutrophils 4.5 thou/uL (1.40-6.50); %Basophils 1.2 % (0.0-1.0); %Eosinophils 2.7 % (0.0-10.0); %Lymphocytes 29.8 % (21.0-51.0); %Monocytes 9.9 % (0.0-10.0); %Neutrophils 56.4 % (42.0-75.0); Hemoglobin 14.2 g/dL (14.0-18.0); Mean Corpuscular Hemoglobin 32.4 pg (27.0-31.0); Mean Corpuscular Volume 95.3 fl (80.0-94.0); Platelet Count 195 thou/uL (130-400); RBC Distribution Width 11.9 % (11.5-14.5); Red Blood Cell (RBC) Count 4.38 mill/uL (4.70-6.10); White Blood Cell (WBC) Count 7.9 thou/uL (4.8-10.8)
== END 2016-10-08 07:33 | disposition home or self-care (01) ==
LOC: MADLABBHPM 07:32
PROVIDERS: ATTEND Family Medicine
DX: I25.10 Atherosclerotic heart disease of native coronary artery without angina pectoris (principal)
CPT/HCPCS: 36415; 80048; 80061; 80076; 85025